=== PATIENT | male | born 1980 | race Two or more races ===

== ENCOUNTER 2018-12-17 13:02 | Emergency (ER) | payer SELFPAY ==
[~2018-12-17] VITALS: Ht 182.9 cm; Wt 77.1 kg
[2018-12-17 13:29] VITALS: BP 135/76
== END 2018-12-17 16:00 | disposition left against medical advice (07) ==
LOC: ER 13:10
DX: S96.912A Strain of unspecified muscle and tendon at ankle and foot level, left foot, initial encounter (principal); S96.911A Strain of unspecified muscle and tendon at ankle and foot level, right foot, initial encounter; X58.XXXA Exposure to other specified factors, initial encounter; Y93.89 Activity, other specified; Y92.89 Other specified places as the place of occurrence of the external cause; Y99.8 Other external cause status
CPT/HCPCS: 73630